=== PATIENT | male | born 1995 | race Caucasian/White ===

== ENCOUNTER 2016-07-19 14:40 | Emergency (ER) | payer SELFPAY ==
[2016-07-19 14:55] VITALS: BP 143/80
--- NOTE | 2016-07-19 14:58 | EDM.PDOC ---
ED HPI GENERAL MEDICAL PROBLEM - General Chief Complaint: Skin Complaint Stated Complaint: Rash to both wrist; tick bites to left foot and right upper thigh; joint pain Time Seen by Provider: 07/19/16 14:44 Source of Information: Reports: Patient, Family, RN, RN Notes Reviewed History Limitations: Reports: No Limitations - History of Present Illness INITIAL COMMENTS - FREE TEXT/NARRATIVE: Patient presents to the ED at [facility] with a couple different complaints. Patient states he found a wood tick on his inner thigh about one week ago. A second tick was found a couple days later on the anterior right thigh. 2 days ago, a third tick was found between the 3rd and 4th digits on the left foot. No concerns of the tick bite sites themselves. Patient complains of headaches, joint pain, and muscle aches. These symptoms have been occurring for the past couple of days and progressively getting worse. Patient also have a rash located on both the wrist, waist line and posterior left lower calf. Patient states the rash is extremely itchy. Onset: Gradual Generalized Pain Score (Numeric/FACES): 5 - Related Data Allergies Allergy/AdvReac Type Severity Reaction Status Date / Time latex Allergy Hives Verified 07/19/16 14:55 Penicillins Allergy Anaphylactic Verified 07/19/16 14:55 Shock Home Meds: Home Meds Permethrin [IJD: Permethrin] 60 gm TP ONETIME #60 gm 07/19/16 [Rx] ED ROS GENERAL - Review of Systems Review Of Systems: See Below Constitutional: Denies: Fever, Chills, Weakness Respiratory: Denies: Shortness of Breath, Cough Cardiovascular: Denies: Chest Pain, Palpitations GI/Abdominal: Denies: Abdominal Pain, Nausea, Vomiting Musculoskeletal: Reports: Joint Pain, Joint Swelling, Muscle Pain, Muscle Stiffness Skin: Reports: Pruritis, Rash Neurological: Reports: Headache. Denies: Dizziness, Numbness, Paresthesia, Tingling ED EXAM, SKIN/RASH Exam: See Below Exam Limited By: No Limitations General Appearance: Alert, No Apparent Distress Head: Atraumatic, Normocephalic Neck: Supple. No: Lymphadenopathy (L), Lymphadenopathy (R) Respiratory/Chest: No Respiratory Distress, Lungs Clear, Normal Breath Sounds Cardiovascular: Regular Rate, Rhythm GI/Abdominal: Normal Bowel Sounds, Soft, Non-Tender Neurological: Alert, Oriented Skin: Erythema, Excoriations, Rash (Induration and scaling volar surface right and left wrist; waist line and posterior left calf; areas consistent with scabies infestation) Associated features: Induration, Wcaling Course - Vital Signs Last Recorded V/S: Last Vital Signs Temp 37.1 C 07/19/16 14:52 Pulse 94 07/19/16 14:52 Resp 16 07/19/16 14:52 BP 143/80 H 07/19/16 14:52 Pulse Ox 98 07/19/16 14:52 - Orders/Labs/Meds Orders: Active Orders 24 hr Category Date Time Status BASIC METABOLIC PANEL,BMP [CHEM] Stat Lab 07/19/16 15:05 Received LYME/B.BURGDORFERI IGG/IGM [REF] Stat Lab 07/19/16 15:05 Received Labs: Laboratory Tests 07/19/16 Range/Units 15:05 WBC 7.7 (4.0-10.0) x10^3/uL RBC 5.43 (4.5-6.0) x10^6/uL Hgb 16.3 (14.0-18.0) g/dL Hct 47.2 (40.0-52.0) % MCV 86.9 (78.0-93.0) fL MCH 30.0 (26.0-32.0) pg MCHC 34.5 (32.0-36.0) g/dL RDW Coeff of Areli 13.1 (10.0-15.0) % Plt Count 220 (130-400) x10^3/uL Neut % (Auto) 53.2 (50.0-80.0) % Lymph % (Auto) 37.2 (25.0-50.0) % Dundy % (Auto) 7.1 (2.0-11.0) % Eos % (Auto) 2.2 (0.0-4.0) % Baso % (Auto) 0.3 (0.2-1.2) % Meds: Medications Discontinued Medications Generic Name Dose Route Start Last Admin Trade Name Freq PRN Reason Stop Dose Admin Doxycycline Hyclate 200 mg 07/19/16 15:30 Vibramycin PO 07/19/16 15:31 ONETIME ONE Gentamicin Sulfate 80 mg 07/19/16 15:38 Gentamicin IM 07/19/16 15:39 ONETIME ONE Departure - Departure Time of Disposition: 15:40 Disposition: Home, Self-Care 01 Condition: good Clinical Impression: Scabies infestation, Risk of exposure to Lyme disease - Discharge Information Prescriptions: Permethrin [IJD: Permethrin] 60 gm TP ONETIME #60 gm Instructions: Scabies, Adult, Preventing Mosquito-Borne Illnesses Referrals: PCP,None [Primary Care Provider] - Forms: ED Department Discharge Additional Instructions: 1. Stay well hydrated and rest 2. Follow discharge instruction on the treatment of scabies 3. We will mail a letter when all blood test results are available 4. See your Primary care provider as symptoms warrant - Problem List Review Problem List Initiated/Reviewed/Updated: Yes - My Orders Last 24 Hours: My Active Orders 07/19/16 15:05 BASIC METABOLIC PANEL,BMP [CHEM] Stat LYME/B.BURGDORFERI IGG/IGM [REF] Stat - Assessment/Plan Last 24 Hours: My Active Orders 07/19/16 15:05 BASIC METABOLIC PANEL,BMP [CHEM] Stat LYME/B.BURGDORFERI IGG/IGM [REF] Stat
[2016-07-19] MEDS ORDERED: Doxycycline 100 MG Cap PO ONE (15:30)
[2016-07-19] MEDS ORDERED: Gentamicin 40 MG/ML 2 ML Vial IM ONE (15:38)
[2016-07-19 15:42] LABS: CHLORIDE,CL 104 mmol/L (98-107); SODIUM,NA 142 mmol/L (136-145)
== END 2016-07-19 15:55 | disposition home or self-care (01) ==
LOC: VM.ED 14:40
DX: B86 Scabies (principal); Z91.89 Other specified personal risk factors, not elsewhere classified; Z91.040 Latex allergy status; Z88.0 Allergy status to penicillin
CPT/HCPCS: 80048; 85025; 86618; 96372; 99283; 99284; A9270; J1580; 36415